=== PATIENT | female | born 1930 | race Caucasian/White ===

== ENCOUNTER 2016-05-16 09:46 | Outpatient (CLI) | payer MEDICARE, OTHER ==
[2014-05-21 08:30] VITALS: BP 157/79
== END 2016-05-16 09:56 ==
LOC: LAB 09:46
PROVIDERS: ATTEND Family Medicine
DX: Z51.81 Encounter for therapeutic drug level monitoring (principal); Z79.01 Long term (current) use of anticoagulants; I48.91 Unspecified atrial fibrillation
CPT/HCPCS: 36415; 85610

== ENCOUNTER 2016-05-30 12:20 | Outpatient (CLI) | payer MEDICARE, OTHER ==
[2014-05-21 08:30] VITALS: BP 157/79
== END 2016-05-30 12:21 ==
LOC: LAB 12:20
PROVIDERS: ATTEND Family Medicine
DX: Z51.81 Encounter for therapeutic drug level monitoring (principal); Z79.01 Long term (current) use of anticoagulants; I48.91 Unspecified atrial fibrillation
CPT/HCPCS: 36415; 85610

== ENCOUNTER 2016-06-21 21:33 | Emergency (ER) | payer MEDICARE, OTHER ==
--- NOTE | 2016-06-21 21:51 | ED Physician Documentation ---
Chest Pain - HISTORIAN Historian: patient, friend - [facility] Chief Complaint: Chest Pain Onset: hours Timing: sudden onset Last known Well Date: 06/21/16 Last Known Well Time: 15:00 Context: rest Severity: moderate Quality: tightness Chest Pain Radiation: shoulders Chest Pain Signs/Symptoms: dyspnea, weakness. denies: nausea, vomiting, diaphoresis, dizziness, tachypnea, tachycardia, hypotension, palpitations Worsened By: nothing Relieved By: nothing Further Comments: yes (85 year old patient presents with complaints of chest pain since "this afternoon". Patient reports intermittent chest pain radiating to her shoulders, denies SOB, nause or diaphoresis. Patient states she took mylanta PAPER PRODUCTS INSPECTOR, "I thought it was indigestion.") - ROS CONST: none MS/LYMPH: none GI/: none EYES/ENT: none SKIN/ENDO: none NEURO/PSYCH: none - PAST HX NC risk factors: A-Fib DVT/PE Risk Factors: none TAD/AAA risk factors: none Neuro deficit: none GI disease: none Lung disease: none Surgeries/Procedures: pacemaker, cholecysectomy, hysterectomy Allergies/Adverse Reactions: Allergies Allergy/AdvReac Type Severity Reaction Status Date / Time ciprofloxacin [From Cipro] Allergy Verified 06/21/16 22:00 ciprofloxacin HCl Allergy Verified 06/21/16 22:00 [From Cipro] hydrochlorothiazide Allergy Verified 06/21/16 22:00 lisinopril [From Zestril] Allergy Verified 06/21/16 22:00 Sulfa (Sulfonamide Allergy Verified 06/21/16 22:00 Antibiotics) vancomycin Allergy Verified 06/21/16 22:00 Home Medications: Ambulatory Orders Medication Instructions Recorded Anastrozole [Arimidex] 1 mg PO QD 11/22/13 Diltiazem HCl [Cardizem LA] 240 mg PO BID 11/22/13 Metoprolol Succinate [Toprol XL] 100 mg PO BID 06/21/16 Warfarin Sodium 3 mg PO QDAY 06/21/16 - SOCIAL HX Smoking History: non-smoker - FAMILY HX Family HX: none - VITAL SIGNS Vital Signs: Vital Signs Temp Pulse Resp BP Pulse Ox 157/79 05/21/14 08:42 - REVIEWED ASSESSMENTS Nursing Assessment Reviewed: Yes Vitals Reviewed: Yes Progress - Progress Progress: Patient denies any CP at present. C/O left shoulder pain "just a little", unable to rate. 2255 Trop .2 - discussed with patient, recommended transfer to [facility] to her fingerprint clerk for further evaluation. Patient agrees with treatment plan. Nitro paste placed on chest wall, patient states shoulder pain is now gone 2305 Call to [facility] - patient accepted by Dr. Prosper Starks. Will transfer via EMS. - EKG/XRAY/CT EKG: rhythm (AFib with PPM, rate 86) - Additional EKG/XRAY/Consults Time Called: 23:10 Consult/PCP: [facility] - accepted by fingerprint clerk; Dr Prosper Starks ED Results Lab/Radiology - Radiology Radiology Impressions: Chest - one-view Clinical history: Chest pain and left shoulder pain. Findings: Examination of the chest in single portable AP view 06/21/2016 2215 hours with no prior film for comparison demonstrates cardiomegaly and aortic atherosclerosis. Bipolar pacemaker overlies left hemithorax. Degenerative changes are seen in the shoulders. Impression: 1. Cardiomegaly and aortic atherosclerosis. 2. Transvenous pacemaker. 3. No active disease. - Orders Orders: ED Orders Category Date Time Status Continuous EKG monitoring Q30M Care 06/21/16 21:48 Ordered Continuous Pulse Oximetry Q30M Care 06/21/16 21:[address] Saline Lock/IV NOW Care 06/21/16 21:48 Ordered CHEST 1 VIEW [RAD] Stat Exams 06/21/16 21:48 Ordered CBC/PLATELET/DIFF Stat Lab 06/21/16 21:48 Ordered CMP Stat Lab 06/21/16 21:48 Ordered CREATINE KINASE Stat Lab 06/21/16 21:48 Ordered TROPONIN I (cTnI) Stat Lab 06/21/16 21:48 Ordered UA W/MICRO IF INDICATED Stat Lab 06/21/16 21:48 Ordered Oxygen Daily Oxygen 06/21/16 22:00 Ordered EKG WITH COMPARISON Stat Ther 06/21/16 21:48 Ordered Chest Pain Physical Exam - EXAM General Appearance: mild distress EENT: eye inspection normal, NICKY Respiratory: no resp. distress, chest non-tender, nml breath sounds CVS: no murmur, no gallop, no friction rub, pulses full, pulses equal, irregularly irreg. 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 Neuro: oriented X3, CN's nml as tested, motor nml, sensation nml, mood/affect nml Discharge Clincal Impression: AMI (acute myocardial infarction) Qualifiers: Myocardial infarction ST status: non-ST elevation myocardial infarction Qualified Code(s): I21.4 - Non-ST elevation (NSTEMI) myocardial infarction Home Medications: Ambulatory Orders Anastrozole [Arimidex] 1 mg PO QD 11/22/13 Diltiazem HCl [Cardizem LA] 240 mg PO BID 11/22/13 Metoprolol Succinate [Toprol XL] 100 mg PO BID 06/21/16 Warfarin Sodium 3 mg PO QDAY 06/21/16 Condition: Serious Disposition: 02 XFER SHT-TRM HOSP Decision to Admit: NO Decision Time: 23:15
[2016-06-21 22:40] LABS: BASOPHILS % 0.3 (0.0-1.5); EOSINOPHILS % 1.6 % (0.0-6.8); LYMPHOCYTES # 1.3 # k/uL (0.6-4.0); MEAN CORPUSCULAR HEMOGLOBIN 32.3 pg (28.0-34.0); MONOCYTES # 0.4 # k/uL (0.0-0.9)
[2016-06-21] MEDS ORDERED: ASPIRIN 81 MG CHEW TAB ONE (22:59)
[2016-06-21] MEDS ORDERED: ASPIRIN 81 MG CHEW TAB PO ONE (22:59)
[2016-06-21 23:03] LABS: eGFR (African) > 60; eGFR (Non-African) > 60
[2016-06-21] MEDS ORDERED: NITROGLYCERIN 2% 1GM OINT PACKET...G. TD ONE (23:04)
[2016-06-22 00:01] VITALS: BP 140/72
--- NOTE | 2016-06-22 07:17 | Diagnostic Imaging Report ---
TOBY NEVILLE (DAQUAN) - ER [facility] [address] [address] Report Submission Date: Jun 21, 2016 10:27:07 PM FINISHER SPECIAL STOCKS Patient Study Name: CLARK HANNAH Date: Jun 21, 2016 10:15:48 PM FINISHER SPECIAL STOCKS MRN: [id number] Modality Type: CR Gender: F Description: CHEST : 31 Institution: [facility] Physician: TOBY NEVILLE) - ER Chest - one-view Clinical history: Chest pain and left shoulder pain. Findings: Examination of the chest in single portable AP view 06/21/2016 2215 hours with no prior film for comparison demonstrates cardiomegaly and aortic atherosclerosis. Bipolar pacemaker overlies left hemithorax. Degenerative changes are seen in the shoulders. Impression: 1. Cardiomegaly and aortic atherosclerosis. 2. Transvenous pacemaker. 3. No active disease. Electronically signed on Jun 21, 2016 10:27:07 PM FINISHER SPECIAL STOCKS by: Morales LORENZANA
== END 2016-06-21 23:40 | disposition short-term general hospital (02) ==
LOC: ED 21:33
DX: I21.4 Non-ST elevation (NSTEMI) myocardial infarction (principal)
CPT/HCPCS: 71010; 80053; 82550; 84484; 85025; 85610; 99284; S1016

== ENCOUNTER 2016-08-15 12:18 | Outpatient (CLI) | payer MEDICARE, OTHER ==
[2016-06-22 00:01] VITALS: BP 140/72
== END 2016-08-15 12:20 ==
LOC: LAB 12:18
PROVIDERS: ATTEND Family Medicine
DX: Z51.81 Encounter for therapeutic drug level monitoring (principal); Z79.01 Long term (current) use of anticoagulants; I48.91 Unspecified atrial fibrillation
CPT/HCPCS: 36415; 85610

== ENCOUNTER 2016-08-22 08:38 | Outpatient (CLI) | payer MEDICARE, OTHER ==
[2016-06-22 00:01] VITALS: BP 140/72
--- NOTE | 2016-08-22 14:22 | Diagnostic Imaging Report ---
ALEX DICKEY [facility] [address] [facility] [address] [place], [place]. [address] Report Submission Date: August 22, 2016 1:12:50 PM CDT Patient Study Name: CLARK HANNAH Date: August 22, 2016 8:50:29 AM CDT MRN: [id number] Modality Type: CT\SR Gender: F Description: CT L-SPINE W/O CONTRAS : 31 Institution: [facility] Physician: ALEX DICKEY CT of the lumbar spine without contrast Clinical history: Back pain Technique: Helical axis CT of the lumbar spine from thoracic spine and sacrum with sagittal and coronal reconstructions Findings: There is disc space narrowing at all levels in the lumbar spine. Vacuum cleft are present multiple levels. This heavy aortoiliac vascular calcification. There is a 12 mm left renal pelvis calculus and multiple left renal calculi. Bilateral renal cortical thinning is present. Mesenteric and renal vascular calcification are present. There straightening of the normal lumbar lordotic curve. T12/L1 disc space is narrowed with marginal spurs. There is posterior facet degenerative arthritis. L1/2 shows diffuse disc bulging marginal spurs and posterior facet degenerative arthritis. L2/L3 the of shows diffuse disc bulging osteophytes lateral osteophytes and posterior facet degenerative arthritis. L3 shows a burst fracture with about 4 mm of retropulsion of the cortex into the spinal canal. L3/L4 shows diffuse disc bulging posterior osteophytes at the disc margin and degenerative changes in the posterior facet joints. L3/L4 shows disc space narrowing with vacuum cleft formation. Posterior facet degenerative arthritis is present. L4/L5 shows There is diffuse disc bulging and posterior facet degenerative arthritis. The thecal sac is an anterior indentation diffuse disc bulge.. L5/S1 shows diffuse disc bulging and post reverse and degenerative arthritis. Degenerative changes are present the sacroiliac joints. No fracture lytic changes seen in the sacrum. Impression: Burst fracture L3 probably old Extensive spondylosis Left renal calculi and a 12 mm calculus in the left renal pelvis Straightening of the normal lumbar lordotic curve Heavy aortoiliac vascular calcification Electronically signed on August 22, 2016 1:12:50 PM CDT by: Fausto LORENZANA
== END 2016-08-22 08:40 ==
LOC: RAD 08:38
PROVIDERS: ATTEND Family Medicine
DX: R20.0 Anesthesia of skin (principal)
CPT/HCPCS: 72131

== ENCOUNTER 2016-09-27 11:44 | Outpatient (CLI) | payer MEDICARE, OTHER ==
[2016-06-22 00:01] VITALS: BP 140/72
[2016-09-27 12:15] LABS: BASOPHILS % 0.6 (0.0-1.5); EOSINOPHILS % 2.2 % (0.0-6.8); MEAN CORPUSCULAR HEMOGLOBIN 32.3 pg (28.0-34.0); MONOCYTES % 5.3 % (0.0-11.0); NEUTROPHILS # 5.1 # k/uL (1.4-7.7)
[2016-09-27 12:36] LABS: eGFR (African) > 60; eGFR (Non-African) > 60
== END 2016-09-27 11:45 ==
LOC: LAB 11:44
PROVIDERS: ATTEND Physician Assistant
DX: R10.11 Right upper quadrant pain (principal); Z79.01 Long term (current) use of anticoagulants
CPT/HCPCS: 36415; 80053; 85025; 85610

== ENCOUNTER → 2016-10-27 | Outpatient (CLI) | payer MEDICARE, OTHER ==
[2016-06-22 00:01] VITALS: BP 140/72
== END ==
LOC: LAB 14:18
PROVIDERS: ATTEND Family Medicine
DX: I48.91 Unspecified atrial fibrillation (principal); Z79.01 Long term (current) use of anticoagulants
CPT/HCPCS: 36415; 85610

== ENCOUNTER 2016-11-28 11:52 | Outpatient (CLI) | payer MEDICARE, OTHER ==
[2016-06-22 00:01] VITALS: BP 140/72
== END 2016-11-28 11:53 ==
LOC: LAB 11:52
PROVIDERS: ATTEND Family Medicine
DX: I48.91 Unspecified atrial fibrillation (principal); Z79.01 Long term (current) use of anticoagulants
CPT/HCPCS: 36415; 85610

== ENCOUNTER 2016-12-26 11:54 | Outpatient (CLI) | payer MEDICARE, OTHER ==
[2016-06-22 00:01] VITALS: BP 140/72
== END 2016-12-26 11:55 ==
LOC: LAB 11:54
PROVIDERS: ATTEND Family Medicine
DX: I48.91 Unspecified atrial fibrillation (principal); Z79.01 Long term (current) use of anticoagulants
CPT/HCPCS: 36415; 85610

== ENCOUNTER 2017-01-23 12:01 | Outpatient (CLI) | payer MEDICARE, OTHER ==
[2016-06-22 00:01] VITALS: BP 140/72
== END 2017-01-23 12:02 ==
LOC: LAB 12:01
PROVIDERS: ATTEND Family Medicine
DX: I48.91 Unspecified atrial fibrillation (principal); Z79.01 Long term (current) use of anticoagulants
CPT/HCPCS: 36415; 85610

== ENCOUNTER 2017-02-06 12:26 | Outpatient (CLI) | payer MEDICARE, OTHER ==
[2016-06-22 00:01] VITALS: BP 140/72
== END 2017-02-06 12:28 ==
LOC: LAB 12:26
PROVIDERS: ATTEND Family Medicine
DX: I48.91 Unspecified atrial fibrillation (principal); Z79.01 Long term (current) use of anticoagulants
CPT/HCPCS: 36415; 85610

== ENCOUNTER 2017-02-21 13:39 | Outpatient (CLI) | payer MEDICARE, OTHER ==
[2016-06-22 00:01] VITALS: BP 140/72
== END 2017-02-21 13:40 ==
LOC: LAB 13:39
PROVIDERS: ATTEND Family Medicine
DX: Z79.01 Long term (current) use of anticoagulants (principal); I48.91 Unspecified atrial fibrillation
CPT/HCPCS: 36415; 85610

== ENCOUNTER 2017-02-26 09:26 | Outpatient (CLI) | payer MEDICARE, OTHER ==
[2016-06-22 00:01] VITALS: BP 140/72
== END 2017-02-26 09:27 ==
LOC: LAB 09:26
PROVIDERS: ATTEND Family Medicine
DX: Z79.01 Long term (current) use of anticoagulants (principal); I48.91 Unspecified atrial fibrillation
CPT/HCPCS: 36415; 85610

== ENCOUNTER 2017-03-27 12:07 | Outpatient (CLI) | payer MEDICARE, OTHER ==
[2016-06-22 00:01] VITALS: BP 140/72
== END 2017-03-27 12:10 ==
LOC: LAB 12:07
PROVIDERS: ATTEND Family Medicine
DX: Z79.01 Long term (current) use of anticoagulants (principal); I48.91 Unspecified atrial fibrillation
CPT/HCPCS: 36415; 85610

== ENCOUNTER 2017-05-02 13:14 | Outpatient (CLI) | payer MEDICARE, OTHER ==
[2016-06-22 00:01] VITALS: BP 140/72
== END 2017-05-02 13:15 ==
LOC: LAB 13:14
PROVIDERS: ATTEND Family Medicine
DX: Z79.01 Long term (current) use of anticoagulants (principal); I48.91 Unspecified atrial fibrillation
CPT/HCPCS: 36415; 85610

== ENCOUNTER 2017-05-31 13:00 | Outpatient (CLI) | payer MEDICARE, OTHER ==
[2016-06-22 00:01] VITALS: BP 140/72
== END 2017-05-31 13:02 ==
LOC: LAB 13:00
PROVIDERS: ATTEND Family Medicine
DX: Z79.01 Long term (current) use of anticoagulants (principal); I48.91 Unspecified atrial fibrillation
CPT/HCPCS: 36415; 85610

== ENCOUNTER 2017-06-28 12:51 | Outpatient (CLI) | payer MEDICARE, OTHER ==
[2016-06-22 00:01] VITALS: BP 140/72
[2017-06-28 13:45] LABS: eGFR (African) > 60; eGFR (Non-African) > 60
== END 2017-06-28 12:53 ==
LOC: LAB 12:51
PROVIDERS: ATTEND Family Medicine
DX: E78.00 Pure hypercholesterolemia, unspecified (principal); I10 Essential (primary) hypertension; Z79.01 Long term (current) use of anticoagulants; I48.91 Unspecified atrial fibrillation
CPT/HCPCS: 36415; 80053; 80061; 85610

== ENCOUNTER 2017-07-31 12:05 | Outpatient (CLI) | payer MEDICARE, OTHER ==
[2016-06-22 00:01] VITALS: BP 140/72
[2017-07-31 12:51] LABS: eGFR (African) > 60; eGFR (Non-African) > 60
== END 2017-07-31 12:06 ==
LOC: LAB 12:05
PROVIDERS: ATTEND Family Medicine
DX: Z79.01 Long term (current) use of anticoagulants (principal); I48.91 Unspecified atrial fibrillation
CPT/HCPCS: 36415; 80048; 85610

== ENCOUNTER 2017-08-14 12:17 | Outpatient (CLI) | payer MEDICARE, OTHER ==
[2016-06-22 00:01] VITALS: BP 140/72
[2017-08-14 13:18] LABS: eGFR (Non-African) > 60
== END 2017-08-14 12:20 ==
LOC: LAB 12:17
PROVIDERS: ATTEND Family Medicine
DX: E87.5 Hyperkalemia (principal)
CPT/HCPCS: 36415; 80048

== ENCOUNTER 2017-08-22 16:15 | Outpatient (CLI) | payer MEDICARE, OTHER ==
[2016-06-22 00:01] VITALS: BP 140/72
== END 2017-08-22 16:17 ==
LOC: LABRHC 16:15
PROVIDERS: ATTEND Family Medicine
DX: N30.01 Acute cystitis with hematuria (principal)
CPT/HCPCS: 87086

== ENCOUNTER 2017-09-04 12:09 | Outpatient (CLI) | payer MEDICARE, OTHER ==
[2016-06-22 00:01] VITALS: BP 140/72
[2017-09-04 17:38] LABS: eGFR (African) > 60; eGFR (Non-African) > 60
== END 2017-09-04 12:10 ==
LOC: LAB 12:09
PROVIDERS: ATTEND Family Medicine
DX: Z79.01 Long term (current) use of anticoagulants (principal); I48.91 Unspecified atrial fibrillation; E87.5 Hyperkalemia
CPT/HCPCS: 36415; 80048; 85610

== ENCOUNTER 2017-09-19 07:58 | Emergency (ER) | payer MEDICARE, OTHER ==
--- NOTE | 2017-09-19 08:26 | ED Physician Documentation ---
General Adult - HISTORIAN Historian: patient - HPI Stated Complaint: nausea Chief Complaint: General Adult Onset: hours Timing: still present Severity: moderate Further Comments: yes (Pt is an 87 yo female with nausea this am and epigastric abd pain. Pt had an [place] in June 2017, and was worried if this could be another heart attack. Pt is pain free at time of exam.) - ROS CONST: no problems EYES/ENT: none CVS/RESP: none GI/: abdominal pain (epigastric) MS/SKIN/LYMPH: none - PAST HX Past History: other ([place] w stents; afib; cancer; DM) Surgeries/Procedures: cholecystectomy, cardiac stent, hysterectomy, other ( Mastectomy) Allergies/Adverse Reactions: Allergies Allergy/AdvReac Type Severity Reaction Status Date / Time ciprofloxacin [From Cipro] Allergy Verified 09/19/17 08:07 ciprofloxacin HCl Allergy Verified 09/19/17 08:07 [From Cipro] furosemide [From Lasix] Allergy Verified 09/19/17 08:08 hydrochlorothiazide Allergy Verified 09/19/17 08:07 lisinopril [From Zestril] Allergy Verified 09/19/17 08:07 nitrofurantoin Allergy Verified 09/19/17 08:08 [From Macrodantin] Sulfa (Sulfonamide Allergy Verified 09/19/17 08:07 Antibiotics) vancomycin Allergy Verified 09/19/17 08:07 Home Medications: Ambulatory Orders Medication Instructions Recorded Warfarin Sodium 3 mg PO QDAY 06/21/16 Metoprolol Succinate [Toprol Xl] 1 tab PO BID 09/19/17 - SOCIAL HX Smoking History: non-smoker - FAMILY HX Family History: No - VITAL SIGNS Vital Signs: Vital Signs Temp Pulse Resp BP Pulse Ox 97.8 F 82 18 143/66 98 09/19/17 07:58 09/19/17 07:58 09/19/17 07:58 09/19/17 07:58 09/19/17 07:58 - REVIEWED ASSESSMENTS Nursing Assessment Reviewed: Yes Vitals Reviewed: Yes Progress - Progress Progress: Pt pain free in ER. Pt has had heart burn in the past for which she takes Mylanta. - EKG/XRAY/CT EKG: NSR (HR=71; LAD) ED Results Lab/Radiology - Orders Orders: ED Orders Category Date Time Status Continuous EKG monitoring Q30M Care 09/19/17 08:21 Active Continuous Pulse Oximetry Q30M Care 09/19/17 08:[address] IV Lock 1T Care 09/19/17 08:21 Active CBC/PLATELET/DIFF Routine Lab 09/19/17 08:21 Ordered CKMB Stat Lab 09/19/17 Ordered CMP Routine Lab 09/19/17 08:21 Ordered CREATINE KINASE Routine Lab 09/19/17 08:21 Ordered NT-proBNP Stat Lab 09/19/17 Ordered PT-INR Routine Lab 09/19/17 Ordered TROPONIN I (cTnI) Stat Lab 09/19/17 Ordered 0.9 % Sodium Chloride [Normal Saline] 500 ml Med 09/19/17 08:21 Active IV NOW EKG WITH COMPARISON Stat Ther 09/19/17 08:21 Ordered General Adult Physical Exam - PHYSICAL EXAM GENERAL APPEARANCE: no distress EENT: pharynx normal NECK: normal inspection, supple RESPIRATORY: no resp distress, chest non-tender, breath sounds normal CVS: reg rate & rhythm, heart sounds normal, equal pulses ABDOMEN: soft, no organomegaly, normal bowel sounds BACK: normal inspection, no CVA tenderness SKIN: warm/dry, normal color EXTREMITIES: non-tender, normal range of motion, no evidence of injury NEURO: oriented X3, motor nml, sensation nml Discharge Clincal Impression: transient epigastric pain Referrals: Collin Lewis MD [Primary Care Provider] - 2 Days Decision to Admit: NO Decision Time: 10:15
[2017-09-19] MEDS: 0.9 % SODIUM CHLORIDE 500 ML IV ONE (08:50)
[2017-09-19 09:04] LABS: BASOPHILS % 0.4 (0.0-1.5); EOSINOPHILS % 2.9 % (0.0-6.8); MEAN CORPUSCULAR HEMOGLOBIN 31.1 pg (28.0-34.0); MEAN CORPUSCULAR VOLUME 95.1 fl (80.0-100.0); MONOCYTES % 6.2 % (0.0-11.0); NEUTROPHILS # 5.8 # k/uL (1.4-7.7)
[2017-09-19 09:11] LABS: eGFR (African) > 60; eGFR (Non-African) > 60
[2017-09-19 10:25] VITALS: BP 150/67
[2017-09-19 14:26] LABS: APPEARANCE,URINE CLEAR (CLEAR); COLOR,URINE YELLOW (YELLOW); OCCULT BLOOD,URINE TRACE-LYSED (NEGATIVE)
[2017-09-19 14:27] LABS: UROBILINOGEN URINE 0.2 Eu (0.2-1.0)
== END 2017-09-19 10:15 | disposition home or self-care (01) ==
LOC: ED 07:58
DX: R10.13 Epigastric pain (principal)
CPT/HCPCS: 80053; 81002; 82550; 82553; 83880; 84484; 85025; 85610; 96365; 99285; J7060; 99284; S1016

== ENCOUNTER 2017-10-31 08:51 | Outpatient (CLI) | payer MEDICARE, OTHER | END 2017-10-31 08:53 | LOC: LAB 08:51 | PROVIDERS: ATTEND Family Medicine | DX: Z79.01 Long term (current) use of anticoagulants (principal); I48.91 Unspecified atrial fibrillation | CPT/HCPCS: 36415; 85610 ==

== ENCOUNTER 2017-12-13 09:12 | Outpatient (CLI) | payer MEDICARE, OTHER | END 2017-12-13 11:23 | LOC: LAB 09:12 | PROVIDERS: ATTEND Family Medicine | DX: Z79.01 Long term (current) use of anticoagulants (principal); I48.91 Unspecified atrial fibrillation | CPT/HCPCS: 36415; 85610 ==

== ENCOUNTER 2018-01-01 11:53 | Outpatient (CLI) | payer MEDICARE, OTHER | END 2018-01-01 11:54 | LOC: LAB 11:53 | PROVIDERS: ATTEND Family Medicine | DX: Z79.01 Long term (current) use of anticoagulants (principal); I48.91 Unspecified atrial fibrillation | CPT/HCPCS: 36415; 85610 ==

== ENCOUNTER 2018-01-17 09:30 | Outpatient (CLI) | payer MEDICARE, OTHER | END 2018-01-17 09:32 | LOC: LABRHC 09:30 | PROVIDERS: ATTEND Family Medicine | DX: N30.01 Acute cystitis with hematuria (principal) | CPT/HCPCS: 87086; 87186 ==

== ENCOUNTER 2018-02-06 11:54 | Outpatient (CLI) | payer OTHER | END 2018-02-06 11:55 | LOC: LAB 11:54 | PROVIDERS: ATTEND Family Medicine | DX: Z79.01 Long term (current) use of anticoagulants (principal); I48.91 Unspecified atrial fibrillation | CPT/HCPCS: 36415; 85610 ==

== ENCOUNTER 2018-03-11 09:50 | Outpatient (CLI) | payer OTHER | END 2018-03-11 09:52 | LOC: LAB 09:50 | PROVIDERS: ATTEND Family Medicine | DX: Z79.01 Long term (current) use of anticoagulants (principal); I48.91 Unspecified atrial fibrillation | CPT/HCPCS: 36415; 85610 ==

== ENCOUNTER 2018-03-27 13:32 | Outpatient (CLI) | payer OTHER | END 2018-03-27 13:33 | LOC: LAB 13:32 | PROVIDERS: ATTEND Family Medicine | DX: I48.91 Unspecified atrial fibrillation (principal); Z79.01 Long term (current) use of anticoagulants | CPT/HCPCS: 36415; 85610 ==

== ENCOUNTER 2018-05-01 13:53 | Outpatient (CLI) | payer OTHER | END 2018-05-01 13:55 | LOC: LAB 13:53 | PROVIDERS: ATTEND Family Medicine | DX: Z79.01 Long term (current) use of anticoagulants (principal); I48.91 Unspecified atrial fibrillation | CPT/HCPCS: 36415; 85610 ==

== ENCOUNTER 2018-05-24 01:51 | Emergency (ER) | payer OTHER ==
--- NOTE | 2018-05-24 02:15 | ED Physician Documentation ---
Fall - HISTORIAN Historian: patient - HPI Stated Complaint: right hip pain Chief Complaint: Fall Additional Information: Patient presents to ED via EMS after falling at home. Patient states she was ambulating with her walker to the rest room when she last her balance and fell forward landing on her right side. Since that time she has experience right hip pain. She rate her pain 10/10. Onset: just prior to arrival Where: home Context: lost balance r: severe Associated Symptoms:: no loss of consciousness Location of Pain/Injury: hip Injury to Right Extremity: hip Injury to Left Extremity: none - ROS CONST: denies: fever NEURO: denies: dizziness MS/SKIN/LYMPH: denies: weakness, numbness EYES/ENT: denies: problems with vision CVS/RESP: denies: chest pain, shortness of breath GI/: denies: nausea, vomiting - PAST HX Past History: cardiac disease, A-Fib (s/p pacer) Allergies/Adverse Reactions: Allergies Allergy/AdvReac Type Severity Reaction Status Date / Time nitrofurantoin Allergy Intermediate Shortness Verified 05/24/18 02:30 macrocrystalline of Breath ciprofloxacin [From Cipro] Allergy Verified 05/24/18 02:30 ciprofloxacin HCl Allergy Verified 05/24/18 02:30 [From Cipro] furosemide [From Lasix] Allergy Verified 05/24/18 02:30 hydrochlorothiazide Allergy Verified 05/24/18 02:30 lisinopril [From Zestril] Allergy Verified 05/24/18 02:30 nitrofurantoin Allergy Verified 05/24/18 02:30 [From Macrodantin] Sulfa (Sulfonamide Allergy Verified 05/24/18 02:30 Antibiotics) vancomycin Allergy Verified 05/24/18 02:30 Home Medications: Ambulatory Orders Medication Instructions Recorded Atorvastatin Calcium [Lipitor] 20 mg PO HS 05/24/18 Atorvastatin Calcium [Lipitor] 80 mg PO HS 05/24/18 Sotalol HCl [Sotalol] 80 mg PO BID 05/24/18 Ubidecarenone [Co Q-10] 100 mg PO AM 05/24/18 - SOCIAL HX Smoking History: non-smoker Alcohol Use: none Drug Use: none - FAMILY HX Family History: no significant history - VITAL SIGNS Vital Signs: Vital Signs Temp Pulse Resp BP Pulse Ox 150/67 05/30/18 10:15 - REVIEWED ASSESSMENTS Nursing Assessment Reviewed: Yes Vitals Reviewed: Yes Progress - Progress Progress: 0344 UA shows infection, WBC 13.3. Will give a dose of Zosyn 3.375 g [address] with family and transfer for surgery. 0355 Discussed with Wire Frame Lampshade Maker, [place] for transfer. [address] Sanders, [place], will accept. - EKG/XRAY/CT Comments: atrial pacemaker, no signs of ischemia ED Results Lab/Radiology - Lab Results Lab Results: WBC 13.3, Hgb 12,8, Hct 38.3, Plt 274 Na 132, K 3.5, Cl 98, CO2 28, glucose 168, Bun 15, Cr 0.91, Ca 9.3, Alt 22, Ast 44, Alkp 111, Tbili 05, UA - 2+ blood, 3+ leukocytes, nitrite neg INR 2.50, PT 26.5 - Radiology Radiology Impressions: Chest, 1 view History: Fall, right hip pain Findings: The heart size is normal. There is atherosclerosis of the aorta. The lungs are clear. There is no pleural effusion or pneumothorax identified. The osseous structures are normal. Cardiac device present left chest wall with 2 leads extend to the heart. Surgical clips are present right axilla. Impression: 1. No acute pulmonary disease. Electronically signed on May 24, 2018 2:52:34 AM BLOW PIT OPERATOR by: Edd Cotter CT right lower extremity without contrast History: Hip fracture. Technique: Transaxial computed tomographic images of the right hip were obtained without contrast according to standard protocol. Coronal and sagittal reformatted images were obtained. Findings: Right subtrochanteric hip fracture is present with mild impaction. The femoral head remains seated in the acetabulum. No acetabular fracture is present. The remaining portion of the proximal femur is intact. There is atherosclerosis present. No large hematoma.The bones are osteopenic. Impression: 1. Right subcapital femoral neck fracture with mild impaction. 2. Osteopenia. Electronically signed on May 24, 2018 3:34:47 AM BLOW PIT OPERATOR by: Edd Cotter - Orders Orders: ED Orders Category Date Time Status CHEST 1VIEW [RAD] Stat Exams 05/24/18 Ordered RT HIP 2VIEW COMPLETE [RAD] Stat Exams 05/24/18 02:12 Ordered EKG WITH COMPARISON Stat Ther 05/24/18 Ordered Fall Physical Exam - Physical Exam General Appearance: no acute distress, alert Head: non-tender, no obvious injury Neck: non-tender, painless ROM Eye: NICKY Resp/CVS: chest non-tender, breath sounds nml Abdomen: soft, normal bowel sounds, non-tender Neuro: oriented x3, motor nml Back: no CVA tenderness Extremities: pelvis stable, bony point-tenderness (right latera hip), painful weight bearing Joint: limited ROM - Latisha Coma Score Eyes Open: Spontaneous Speech: Oriented Motor: Obeys Commands Discharge Clincal Impression: Hip fracture, right Qualifiers: Encounter type: initial encounter Fracture type: closed Qualified Code(s): S72.001A - Fracture of unspecified part of neck of right femur, initial encounter for closed fracture Acute cystitis Qualifiers: Hematuria presence: without hematuria Qualified Code(s): N30.00 - Acute cystitis without hematuria Referrals: Collin Lweis MD [Primary Care Provider] - 2 Days Comments: Transferred to [place] for hip surgery under the care of Dr. Sanders Condition: Fair Disposition: 02 XFER SHT-TRM HOSP Decision to Admit: [id number] Date of Decison to Admit: 05/24/18 Decision Time: 04:40
[2018-05-24] MEDS ORDERED: fentaNYL CITRATE/PF 100 MCG/2 ML INJ. IVP ONE (02:32)
[2018-05-24] MEDS ORDERED: 0.9 % SODIUM CHLORIDE 1,000 ML IV ONE (03:39)
[2018-05-24] MEDS ORDERED: PIPERACILLIN SODIUM/TAZOBACTAM 3.375 GM in 0.9 % SODIUM CHLORIDE(MINIBAG+ 100 ML IV ONE (03:39)
--- NOTE | 2018-05-24 04:34 | Diagnostic Imaging Report ---
MAGDI LEMUS [facility] [address] [facility] [address] [address] Report Submission Date: May 24, 2018 2:55:27 AM TAILINGS WORKER Patient Study Name: CLARK HANNAH Date: May 24, 2018 2:31:46 AM TAILINGS WORKER Modality Type: DX Gender: F Description: RT HIP 2 VIEW COMPETE : 31 Institution: [facility] Physician: MAGDI LEMUS Right hip, two views History: Fall with right hip. Findings: There is a mildly impacted subcapital femoral neck fracture is suggested. The femoral head remains seated in the acetabulum. The remaining osseous structures of the right hemipelvis are normal. Impression: 1. Subcapital femoral neck fracture is likely present. CT may be obtained for definitive diagnosis. Electronically signed on May 24, 2018 2:55:27 AM TAILINGS WORKER by: Edd LORENZANA
--- NOTE | 2018-05-24 04:35 | Diagnostic Imaging Report ---
MAGDI LEMUS [facility] [address] [facility] [address] [place] [address]. [address] Report Submission Date: May 24, 2018 2:52:34 AM CUSTOMER OPERATIONS INTERN Patient Study Name: CLARK HANNAH Date: May 24, 2018 2:23:51 AM CUSTOMER OPERATIONS INTERN Modality Type: DX Gender: F Description: CHEST 1VIEW : 31 Institution: [facility] Physician: MAGDI LEMUS Chest, 1 view History: Fall, right hip pain Findings: The heart size is normal. There is atherosclerosis of the aorta. The lungs are clear. There is no pleural effusion or pneumothorax identified. The osseous structures are normal. Cardiac device present left chest wall with 2 leads extend to the heart. Surgical clips are present right axilla. Impression: 1. No acute pulmonary disease. Electronically signed on May 24, 2018 2:52:34 AM CUSTOMER OPERATIONS INTERN by: Edd LORENZANA
--- NOTE | 2018-05-24 04:36 | Diagnostic Imaging Report ---
MAGDI LEMUS [facility] [address] [facility] [address] [place], [place]. [address] Report Submission Date: May 24, 2018 3:34:47 AM BIOCHEMISTRY TEACHER Patient Study Name: CLARK HANNAH Date: May 24, 2018 3:10:12 AM BIOCHEMISTRY TEACHER Modality Type: CT\SR Gender: F Description: CT LOWER EXT W/O CONTR : 31 Institution: [facility] Physician: MAGDI LEMUS CT right lower extremity without contrast History: Hip fracture. Technique: Transaxial computed tomographic images of the right hip were obtained without contrast according to standard protocol. Coronal and sagittal reformatted images were obtained. Findings: Right subtrochanteric hip fracture is present with mild impaction. The femoral head remains seated in the acetabulum. No acetabular fracture is present. The remaining portion of the proximal femur is intact. There is atherosclerosis present. No large hematoma.The bones are osteopenic. Impression: 1. Right subcapital femoral neck fracture with mild impaction. 2. Osteopenia. Electronically signed on May 24, 2018 3:34:47 AM BIOCHEMISTRY TEACHER by: Edd LORENZANA
[2018-05-24 05:33] VITALS: BP 150/59
[2018-05-24 06:35] LABS: MEAN CORPUSCULAR HEMOGLOBIN 30.7 pg (28.0-34.0); eGFR (Non-African) > 60
[2018-05-24 06:36] LABS: BASOPHILS % 0.6 (0.0-1.5); EOSINOPHILS % 1.9 % (0.0-6.8); MONOCYTES % 6.2 % (0.0-11.0)
[2018-05-24 06:59] LABS: APPEARANCE,URINE CLOUDY (CLEAR); COLOR,URINE YELLOW (YELLOW); OCCULT BLOOD,URINE 2+ (NEGATIVE); PH URINE 8.5 (5.0 - 8.0); UROBILINOGEN URINE 0.2 Eu (0.2-1.0)
== END 2018-05-24 05:10 | disposition short-term general hospital (02) ==
LOC: ED 01:51
DX: S72.011A Unspecified intracapsular fracture of right femur, initial encounter for closed fracture (principal); N30.00 Acute cystitis without hematuria; Y92.009 Unspecified place in unspecified non-institutional (private) residence as the place of occurrence of the external cause; W01.0XXA Fall on same level from slipping, tripping and stumbling without subsequent striking against object, initial encounter; Y93.01 Activity, walking, marching and hiking
CPT/HCPCS: 36415; 51702; 71045; 73502; 73700; 80053; 81002; 85025; 85610; 87086; 93005; 96365; 96375; 99285; J2543; J3010; J7030; S1016

== ENCOUNTER 2018-06-05 15:33 | Outpatient (CLI) | payer OTHER ==
--- NOTE | 2018-06-06 06:29 | Diagnostic Imaging Report ---
ALEX DICKEY [facility] [address] [facility] [address] [address] Report Submission Date: Jun 05, 2018 5:21:59 PM TOBACCO STEMMER MACHINE Patient Study Name: CLARK HANNAH Date: Jun 05, 2018 4:20:00 PM TOBACCO STEMMER MACHINE Modality Type: CT Gender: F Description: CT L SPINE W/O : 31 Institution: [facility] Physician: ALEX DICKEY CT lumbar spine without contrast HISTORY Fall, fracture TECHNIQUE Images through the lumbar spine were obtained. Multiplanar reconstructions were performed. FINDINGS The lumbar spine is severely demineralized. L3 vertebral body compression fractures present with approximately 50% loss of vertebral body height. There is abnormal bone destruction at the inferior endplate of L1 and the superior endplate of L2. This may represent malignancy. Further evaluation is recommended. Degenerative changes of the facet joints are present at all levels. Anterior osteophyte formation is noted at all levels. There is extensive calcification in the abdominal aorta and its branches. Since 08/22/2016, L3 vertebral body compression fracture is unchanged. Abnormal bone destruction at L1 and L2 is a new finding. IMPRESSION Osteopenia. Severe degenerative change. Chronic L3 vertebral body compression fracture. Abnormal bone destruction at L1-2. Malignancy is not excluded and further evaluation is recommended. Atherosclerosis. Electronically signed on Jun 05, 2018 5:21:59 PM TOBACCO STEMMER MACHINE by: Latrell LORENZANA
== END 2018-06-05 15:35 ==
LOC: RAD 15:33
PROVIDERS: ATTEND Family Medicine
DX: S32.020A Wedge compression fracture of second lumbar vertebra, initial encounter for closed fracture (principal); M85.88 Other specified disorders of bone density and structure, other site
CPT/HCPCS: 72131

== ENCOUNTER 2018-07-05 13:16 | Outpatient (CLI) | payer OTHER ==
--- NOTE | 2018-07-06 04:50 | Diagnostic Imaging Report ---
FORREST GREEN [facility] [address] [facility] [address] [place], [place]. [address] Report Submission Date: Jul 05, 2018 2:38:53 PM CDT Patient Study Name: CLARK HANNAH Date: Jul 05, 2018 1:18:55 PM CDT Modality Type: DX Gender: F Description: RT HIP 2VIEW COMPLETE : 31 Institution: [facility] Physician: FORREST GREEN Exam: Right hip. History: Pain. AP pelvis and shoot through lateral of the right hip are submitted and compared to a study dated May 24, 2018. In the interval an orthopedic device replaces the right hip joint. No signs of acute fracture or dislocation is identified. An intramedullary device in the proximal left femur is noted. Degenerative changes in the left hip joint are noted. Impression: Orthopedic device replaces the right hip joint in the interval. No acute fracture is identified. Electronically signed on Jul 05, 2018 2:38:53 PM CDT by: Fernando LORENZANA
== END 2018-07-05 13:18 ==
LOC: RAD 13:16
PROVIDERS: ATTEND Family Medicine
DX: S72.001A Fracture of unspecified part of neck of right femur, initial encounter for closed fracture (principal); Z98.890 Other specified postprocedural states; Z96.641 Presence of right artificial hip joint
CPT/HCPCS: 73502